=== PATIENT | female | born 1990 | race Caucasian/White ===

== ENCOUNTER 2023-08-27 11:19 | Day surgery (SDC) | payer OTHER ==
[~2023-08-27] VITALS: Ht 167.6 cm; Wt 69.4 kg
[~2023-08-27 11:19] MED LIST: HYDR-643 PO; No home meds
[2023-08-27] MEDS: NS 1,000 ML IV ONE (12:06)
[2023-08-27] MEDS ORDERED: LIDOCAINE 2% 100MG/5ML SDV (FOR ANES.) As Ordered ONE (13:47)
[2023-08-27] MEDS ORDERED: propofoL 200 MG/20 ML VIAL As Ordered ONE (13:47)
[2023-08-27] MEDS ORDERED: fentaNYL 100 MCG/2 ML INJECTION As Ordered ONE (13:48)
[2023-08-27 14:25] VITALS: TEMP 97.7
[2023-08-27 14:55] VITALS: BP 122/75; O2SAT 100
== END 2023-08-27 15:14 | disposition home or self-care (01) ==
LOC: M OPP 11:19
PROVIDERS: ATTEND Internal Medicine Gastroenterology
DX: K63.5 Polyp of colon (principal); K57.30 Diverticulosis of large intestine without perforation or abscess without bleeding; K57.32 Diverticulitis of large intestine without perforation or abscess without bleeding; K64.4 Residual hemorrhoidal skin tags; K64.8 Other hemorrhoids; R93.3 Abnormal findings on diagnostic imaging of other parts of digestive tract; K22.89 Other specified disease of esophagus; K31.89 Other diseases of stomach and duodenum; K31.A0 Gastric intestinal metaplasia, unspecified; R10.13 Epigastric pain; R13.10 Dysphagia, unspecified; F17.200 Nicotine dependence, unspecified, uncomplicated; Z79.899 Other long term (current) drug therapy; Z88.5 Allergy status to narcotic agent; Z91.040 Latex allergy status
CPT/HCPCS: 43239; 45385; 88305; J3010

== ENCOUNTER → 2023-10-29 | Outpatient (CLI) | payer OTHER | LOC: M WHC 08:19 | PROVIDERS: ATTEND Internal Medicine Gastroenterology | DX: R10.13 Epigastric pain (principal) ==

== ENCOUNTER → 2024-02-06 | Outpatient (CLI) | payer OTHER ==
[2024-02-06 12:06] LABS: BASO % 0.2 % (0.0-1.0); EOS # 0.2 10^3/uL (0.0-0.5); EOS % 2.3 % (0.0-3.0); HEMATOCRIT 44.2 % (36.0-47.0); HEMOGLOBIN 15.2 g/dl (12.0-15.5); LYMPH # 3.4 10^3/uL (1.5-5.0); MEAN CORPUSCULAR HEMOGLOBIN 31.3 pg (27.0-33.0); MEAN CORPUSCULAR HGB CONC 34.4 g/dl (32.0-36.5); MEAN CORPUSCULAR VOLUME 91.1 fl (80.0-96.0); MONO # 0.4 10^3/uL (0.0-0.8); MONO % 4.8 % (2.0-8.0); NEUTROPHILS # 4.3 10^3/uL (1.5-8.5); NEUTROPHILS % 51.6 % (36.0-66.0); PLATELET COUNT, AUTOMATED 293 10^3/uL (150-450); RED BLOOD COUNT 4.85 10^6/uL (4.00-5.40); WHITE BLOOD COUNT 8.3 10^3/uL (4.0-10.0)
[2024-02-06 12:38] LABS: ALBUMIN 4.5 G/DL (3.2-5.2); ALKALINE PHOSPHATASE 50 U/L (46-116); ALT/SGPT 16 U/L (7.0-40); AST/SGOT < 8 U/L (<34); BILIRUBIN,TOTAL 0.4 MG/DL (0.3-1.2); BLOOD UREA NITROGEN 7 MG/DL (9-23); CALCIUM LEVEL 9.5 MG/DL (8.5-10.1); CARBON DIOXIDE LEVEL 25 MMOL/L (20-31); CHLORIDE LEVEL 110 MMOL/L (98-107); CREATININE FOR GFR 0.45 MG/DL (0.55-1.30); GLOMERULAR FILTRATION RATE > 60.0 (>60); GLUCOSE, FASTING 88 MG/DL (60-100); POTASSIUM SERUM 4.2 MMOL/L (3.5-5.1); SODIUM LEVEL 140 MMOL/L (136-145); TOTAL PROTEIN 7.2 G/DL (5.7-8.2)
[2024-02-06 12:39] LABS: FERRITIN 55.5 NG/ML (7.3-270.7)
[2024-02-06 12:57] LABS: HEPATITIS B SURFACE ANTIGEN NEGATIVE (NEGATIVE)
[2024-02-06 13:18] LABS: HEPATITIS C VIRUS ABY INDEX < 0.02 INDEX (<0.8)
[2024-02-06 13:19] LABS: HEPATITIS B CORE ANTIBODY IGM NEGATIVE (NEGATIVE)
[2024-02-07 10:31] LABS: ALPHA 1 ANTITRYPSIN 164 mg/dL (83-199)
== END ==
LOC: M RAD 10:58
PROVIDERS: ATTEND Nurse Practitioner Family
DX: R10.11 Right upper quadrant pain (principal)
CPT/HCPCS: 36415; 78227; 80053; 80074; 82103; 82728; 82784; 82977; 85025; 86231; 86255; 86258; 86364; 86381; A9537

== ENCOUNTER → 2024-02-19 | Outpatient (REF) | payer OTHER ==
[2024-02-28 18:51] LABS: CALPROTECTIN STOOL < 5 mcg/g (<50)
[2024-02-28 22:27] LABS: PANCREATIC ELASTASE STOOL > 500 mcg/g (>200)
== END ==
LOC: M LAB REF 11:32
PROVIDERS: ATTEND Nurse Practitioner Adult Health
DX: R19.7 Diarrhea, unspecified (principal); K76.0 Fatty (change of) liver, not elsewhere classified

== ENCOUNTER → 2024-04-06 | Outpatient (CLI) | payer OTHER ==
[~2024-04-06] MED LIST changes: +LIDOCAINE 1% MDV 20ML VIAL As Ordered ONE
[2024-04-06 12:20] VITALS: BP 115/76; TEMP 98.1; O2SAT 99
== END ==
LOC: M IRPRO 12:13
PROVIDERS: ATTEND Otolaryngology
DX: D37.030 Neoplasm of uncertain behavior of the parotid salivary glands (principal)

== ENCOUNTER → 2024-09-17 | Outpatient (CLI) | payer OTHER ==
[~2024-09-17] MED LIST changes: -LIDOCAINE 1% MDV 20ML VIAL As Ordered ONE
== END ==
LOC: M RAD 15:50
PROVIDERS: ATTEND Otolaryngology
DX: D37.030 Neoplasm of uncertain behavior of the parotid salivary glands (principal)

== ENCOUNTER → 2025-03-31 | Outpatient (CLI) | payer OTHER ==
[~2025-03-31] MED LIST changes: +DOCU100C16 PO; +Mirena IUD IU; +OMEP-173 PO; +ONDA-282 PO; +THERTAB52 PO; +WELLTAB38 PO
== END ==
LOC: M RAD 07:11
PROVIDERS: ATTEND Internal Medicine Gastroenterology
DX: K31.84 Gastroparesis (principal)
CPT/HCPCS: 78264; A9541

== ENCOUNTER → 2025-06-03 | Outpatient (CLI) | payer OTHER | LOC: M RAD 12:23 | PROVIDERS: ATTEND Otolaryngology | DX: D11.0 Benign neoplasm of parotid gland (principal) ==